=== PATIENT | male | born 1995 | race Caucasian/White ===

== ENCOUNTER 2017-09-21 12:04 | Inpatient (IN) | payer MEDICAID, SELFPAY ==
[2017-09-21 12:19] VITALS: RESP 18; BMI 21.2
--- NOTE | 2017-09-21 12:22 | HP.PCM_ITS ---
Problem List (1) Acute opioid withdrawal Status: Acute (2) Heroin dependence Status: Chronic (3) Anxiety disorder Status: Chronic Qualifiers: Anxiety disorder type: unspecified anxiety disorder Qualified Code(s): F41.9 - Anxiety disorder, unspecified (4) Tobacco dependence Status: Chronic History of Present Illness Date of Admission: 09/21/17 Chief Complaint: Abdominal pain The patient is a 22 year old M with past medical history significant for tobacco dependence, heroine dependence as well as anxiety presents with abdominal pain. Patient also reports nausea as well as post with he also did experience restless legs. Patient reports daily use of IV heroin he is not. Patient denies any previous detox. In view of worsening symptoms patient did call the [facility] service and was admitted as a case of acute opiate withdrawal for medical stabilization Past Medical History Past Medical History (Chronic Problems): Chronic Problems Heroin dependence (Chronic) Anxiety disorder (Chronic) Tobacco dependence (Chronic) Surgical History: no surgical history Smoking Status: Current every day smoker Tobacco Use: Cigarettes - *Family History Maternal History Items: No pertinent history Paternal History Items: No pertinent history Review of Systems Constitutional: Reports: Night Sweats HEENT: Denies: Head Aches, Sinus Congestion, Sinus Drainage Cardiovascular: Denies: Chest Pain, Orthopnea, Palpitations, Paroxysmal Noc. Dyspnea Respiratory: Denies: Cough, Shortness of breath at rest, Shortness of breath upon exertion, Sputum production Gastrointestinal: Reports: Abdominal Pain, Nausea Genitourinary: Denies: Dysuria, Frequency, Hematuria, Urgency Musculoskeletal: Denies: Joint Pain, Joint Tenderness Skin: Denies: Rash Neurological: Denies: Focal weakness, Numbness, Tingling Psychiatric: Reports: Anxiety VTE Information - Inpt Only VTE Present on Admission: No VTE Mechan Device Prophylaxis: Knee High GOLDY Hose VTE Pharm Prophylaxis ordered?: Yes Patient Problems: Active and Suspected Problems Acute opioid withdrawal (Acute) Objective: GENERAL: Appears anxious HEENT: Clear conjunctiva, moist oral mucosa NECK; supple, normal thyroid, no distended JVD. CHEST: Clear to auscultation bilaterally, HEART: Regular S1 S2, no audible murmurs ABDOMEN: soft, non-tender, normoactive bowel sounds, RECTAL: deferred EXTREMITIES: No edema, no clubbing, no cyanosis. 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 SKIN: No Rash Assessment/Plan All Active Problems Acute opioid withdrawal (Acute) Patient is a 22-year-old gentleman presenting with acute opiate withdrawal 1. Acute opioid withdrawal patient has been admitted to the regular nursing floor for medical stabilization using Subutex 2. Heroine dependence patient was counseled on cessation as stated above he presented with acute opiate withdrawal and management is as discussed above 3. Anxiety disorder: Patient has been placed on Librium as needed 4. Tobacco dependence counseled on cessation, offered nicotine patch for tobacco cravings 5. DVT prophylaxis low risk did encourage early ambulation Code Visit Inpatient E&M: 04596 Init Hosp L3
[2017-09-21 12:54] LABS: Absolute Lymphocyte Count 2.09 X10^3/ul (0.83-4.51); Absolute Neutrophil Count 7.6 X10^3/uL (2.0-7.7); Basophil# 0.05 X10^3/uL; Basophil% 0.5 % (0-1); Eosinophil# 0.09 X10^3/uL; Eosinophils% 0.9 % (0-5); Hematocrit 52.3 % (40-54); Hemoglobin 17.8 g/dl (13.0-16.5); Lymphocyte # 2.09 X10^3/ul (4.0); Lymphocyte % 20.1 % (19-41); Mean Corpuscular Hgb 30.5 pg (27.0-32.0); Mean Corpuscular Volume 89.6 fL (80-94); Monocyte# 0.53 X10^3/uL; Monocyte% 5.1 % (0-10); Neutrophil # 7.61 X10^3/uL (2.7-7.7); Neutrophil % 73.3 % (47-70); Platelet Count 289 K/mm3 (150-450); RBC Distribution Width CV 13.6 % (11.6-14.6); RBC Distribution Width SD 44.7 fl (35.1-43.9); Red Blood Count 5.84 M/mm3 (4.6-6.2); White Blood Count 10.4 K/mm3 (4.4-11.0)
[2017-09-21 12:57] LABS: International Normalized Ratio 0.9; Prothrombin Time (Protime)PT. 12.4 SECONDS (11.7-14.9)
[2017-09-21 12:59] VITALS: BP 136/90; PULSE 70; RESP 16; TEMP 36.9; O2SAT 98
[2017-09-21 13:02] LABS: Bacteria 0 SEEN /hpf (None Seen); Mucous, Urine 0 SEEN /hpf (<or=2+); POSITIVE COUNT NO; POSITIVE DIFFERENTIAL NO; POSITIVE MORPHOLOGY NO; Red Blood Cells-Urine 0 SEEN /hpf (0-5); Squamous Epithelial Cells - UA 0 SEEN /hpf (0-5); White Blood Cells 0 SEEN /hpf (0-5)
[2017-09-21 13:04] LABS: AST(SGOT) 17 U/L (15-37); Alanine Aminotransfer ALT/SGPT 25 U/L (16-61); Albumin, Serum 4.7 g/dL (3.2-5.0); Alkaline Phosphatase 103 U/L (45-117); Amylase 101 U/L (25-115); Anion Gap 5 (5-15); BUN 11 mg/dL (7-18); BUN/Creat Ratio 9.8 RATIO (10-20); Chloride 105 mmol/L (98-107); Creatinine, Serum 1.12 mg/dL (0.70-1.30); EST Glomerular Filtration Rate 85 mL/min (>60); Est Glom Filt Rate - Afr Amer 103 mL/min (>60); Estimated Creatinine Clearance 102.42 ml/min; Globulin 4.6 g/dL (2.2-4.2); Glucose 87 mg/dL (74-106); Lipase 181 U/L (73-393); Protein, Total 9.3 g/dL (6.4-8.2); Sodium Level 136 mmol/L (136-145)
[2017-09-21 13:07] LABS: Color, Urine Yellow (Yellow); Glucose, Dipstick Normal (Normal); Ketone-Dipstick Negative (Negative); Leukocyte Esterase-Dipstick Negative /ul (Negative); Nitrite-Dipstick Negative (Negative); Occult Blood-Urine Negative /ul (Negative); Protein-Dipstick Negative (Negative); Specific Gravity, Urine 1.015 (1.002-1.030); Urine Bilirubin Dipstick Negative (Negative); Urine Clarity Clear (Clear); Urine Urobilinogen Normal (Normal)
[2017-09-21 13:20] LABS: Amphetamine Urine VISTA NEGATIVE (<1000 ng/mL); Barbiturate Urine VISTA NEGATIVE (< 200 ng/mL); Benzodiazepine Urine VISTA NEGATIVE (< 200 ng/mL); Cocaine Urine VISTA NEGATIVE (< 300 ng/mL); Ecstacy Urine VISTA NEGATIVE (< 500 ng/mL); Methadone Urine VISTA NEGATIVE (< 300 ng/mL); PCP Urine VISTA NEGATIVE (< 25 ng/mL); THC Urine VISTA POSITIVE (< 50 ng/mL); Vista UDS pH Range 5
[2017-09-21] MEDS: Buprenorphine HCl 2 MG TAB.SUBL SL ×2 (13:31→20:14)
[2017-09-21] MEDS: chlordiazePOXIDE 25 MG Capsule PO ×3 (13:31→20:14)
[2017-09-21 14:00] VITALS: BP 140/94; PULSE 65; RESP 18; TEMP 36.7
[2017-09-21] MEDS: cloNIDine HCl 0.1 MG Tablet PO (14:20)
[2017-09-21] MEDS: Pramipexole Di-HCl 0.25 MG Tablet PO (14:20)
[2017-09-21] MEDS: Methocarbamol 750 MG Tablet PO (14:20)
[2017-09-21] MEDS: Ibuprofen 600 MG Tablet PO (17:33)
[2017-09-21] MEDS: hydrOXYzine PAM 25 MG Capsule 50 MG PO (17:34)
[2017-09-21 17:46] VITALS: BP 122/83; PULSE 53; RESP 18; TEMP 37.2
[2017-09-21 20:12] VITALS: BP 135/64; PULSE 76; RESP 16; TEMP 36.7
[2017-09-21] MEDS: traZODone 50 MG Tablet PO (20:15)
[2017-09-22] MEDS: chlordiazePOXIDE 25 MG Capsule PO ×3 (00:44→09:59)
[2017-09-22] MEDS: hydrOXYzine PAM 25 MG Capsule 50 MG PO ×2 (00:44→12:38)
[2017-09-22] MEDS: cloNIDine HCl 0.1 MG Tablet PO ×2 (00:44→09:16)
[2017-09-22] MEDS: Ibuprofen 600 MG Tablet PO ×2 (00:46→12:38)
[2017-09-22 02:00] VITALS: BP 107/69; PULSE 64; RESP 18; TEMP 36.8
[2017-09-22] MEDS: Buprenorphine HCl 2 MG TAB.SUBL SL ×3 (05:27→20:25)
[2017-09-22 06:00] VITALS: BP 108/45; PULSE 61; RESP 16; TEMP 37
--- NOTE | 2017-09-22 07:48 | PN_ITS ---
Patient Problems: Active and Suspected Problems Acute opioid withdrawal (Acute) Subjective: Patient is a 22-year-old gentleman presenting with acute opiate withdrawal. Patient was admitted to regular nursing floor for medical stabilization using Subutex 09/23/2017: Patient seen complains of restless legs as well as twitching involving the lower extremities Objective: GENERAL: Appears anxious HEENT: Clear conjunctiva, moist oral mucosa NECK; supple, normal thyroid, no distended JVD. CHEST: Clear to auscultation bilaterally, HEART: Regular S1 S2, no audible murmurs ABDOMEN: soft, non-tender, normoactive bowel sounds, RECTAL: deferred EXTREMITIES: No edema, no clubbing, no cyanosis. 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 SKIN: No Rash Vitals/I&O's: Vital Signs Temp Pulse Resp BP Pulse Ox 98.6 F 61 16 108/45 L 98 09/22/17 06:00 09/22/17 06:00 09/22/17 06:00 09/22/17 06:00 09/21/17 12:59 Oxygen Delivery Method Room Air Weight: 71.2 kg Body Mass Index (BMI) 21.2 Intake and Output for Last 24 Hours 09/20/17 09/21/17 09/22/17 23:59 23:59 23:59 Intake Total 1200 / 1200 1000 / 1000 Balance 1200 / 1200 1000 / 1000 Laboratory Results 09/21/17 12:40: WBC 10.4, RBC 5.84, Hgb 17.8 H, Hct 52.3, MCV 89.6, MCH 30.5, MCHC 34.0, RDW 13.6, RDW Differential 44.7 H, Plt Count 289, MPV 10.0, Immature Gran % (Auto) 0.100, Neut % (Auto) 73.3 H, Lymph % (Auto) 20.1, [place] % (Auto) 5.1, Eos % (Auto) 0.9, Baso % (Auto) 0.5, Absolute Neuts (auto) 7.6, Absolute Lymphs (auto) 2.09, Total Counted Not Reportable 09/21/17 12:40: PT 12.4, INR 0.9 09/21/17 12:40: Sodium 136, Potassium 4.0, Chloride 105, Carbon Dioxide 26.0, Anion Gap 5, BUN 11, Creatinine 1.12, Estim Creat Clear Calc 102.42, Est GFR ( MDRD) Af Amer 103, Est GFR (MDRD) Non-Af 85, BUN/Creatinine Ratio 9.8 L, Glucose 87, Calcium 10.0, Total Bilirubin 0.40, AST 17, ALT 25, Alkaline Phosphatase 103, Total Protein 9.3 H, Albumin 4.7, Globulin 4.6 H, Albumin/ Globulin Ratio 1.0, Amylase 101, Lipase 181 09/21/17 12:40: Ethyl Alcohol 5.0 09/21/17 12:40: Urine Opiates Screen NEGATIVE, Urine Methadone Screen NEGATIVE, Ur Barbiturates Screen NEGATIVE, Ur Phencyclidine Scrn NEGATIVE, Ur Amphetamines Screen NEGATIVE, U Methamphetamin-MDMA NEGATIVE, U Benzodiazepines Scrn NEGATIVE, Urine Cocaine Screen NEGATIVE, U Cannabinoids Screen POSITIVE H, Ur Drug Screen Comment 09/21/17 12:40: Urine Color Yellow, Urine Clarity Clear, Urine pH 5.0, Ur Specific [place] 1.015, Urine Protein Negative, Urine Glucose (UA) Normal, Urine Ketones Negative, Urine Occult Blood Negative, Urine Nitrite Negative, Urine Bilirubin Negative, Urine Urobilinogen Normal, Ur Leukocyte Esterase Negative, Urine RBC 0 SEEN, Urine WBC 0 SEEN, Ur Squamous Epith Cells 0 SEEN, Urine Bacteria 0 SEEN, Urine Mucus 0 SEEN Current Medications Acetaminophen (Tylenol) 500 mg PO Q4H PRN PRN PRN Reason: Temp > 100.4 F Al Hydroxide/Mg Hydroxide (Mylanta Ii) 30 ml PO Q6H PRN PRN PRN Reason: dyspesia Bisacodyl (Dulcolax) 10 mg RECTAL DAILY PRN PRN Reason: Constipation Buprenorphine HCl (Buprenorphine Hcl) 4 mg SL Q8H AKSHAT PRN Reason: Taper Stop: 09/24/17 16:44 Last Admin: 09/22/17 05:27 Dose: 4 mg Chlordiazepoxide (Librium) 25 mg PO Q4H AKSHAT Stop: 09/22/17 08:31 Last Admin: 09/22/17 05:27 Dose: 25 mg Chlordiazepoxide (Librium) 25 mg PO Q6H PRN PRN PRN Reason: Moderate-Severe Anxiety Clonidine (Catapres) 0.1 mg PO Q2H PRN PRN PRN Reason: Hot/Cold Sweats or Anxiety Last Admin: 09/22/17 00:44 Dose: 0.1 mg Dicyclomine HCl (Bentyl) 20 mg PO Q6H PRN PRN PRN Reason: Abdomnial Discomfort Hydroxyzine HCl (Vistaril Vial) 50 mg IM Q6H PRN PRN PRN Reason: Breakthrough Anxiety Hydroxyzine Pamoate (Vistaril Pamoate Capsule) 50 mg PO Q6H PRN PRN PRN Reason: Mild Anxiety Last Admin: 09/22/17 00:44 Dose: 50 mg Ibuprofen (Motrin) 600 mg PO Q8H PRN PRN PRN Reason: Mild-Moderate Pain (1-5/10) Last Admin: 09/22/17 00:46 Dose: 600 mg Loperamide HCl (Imodium) 2 - 4 mg PO UD PRN PRN Reason: LOOSE STOOLS Methocarbamol (Methocarbamol) 750 mg PO Q6H PRN PRN PRN Reason: Muscle Aches Last Admin: 09/21/17 14:20 Dose: 750 mg Nicotine (Nicoderm Cq (Pbkc)) 21 mg TRANSDERM. DAILY AKSHAT Last Admin: 09/21/17 13:31 Dose: 21 mg Ondansetron HCl (Zofran Odt) 4 mg PO Q6H PRN PRN PRN Reason: NAUSEA Pramipexole Dihydrochloride (Mirapex) 0.25 mg PO Q12H PRN PRN PRN Reason: Restless Legs Last Admin: 09/21/17 14:20 Dose: 0.25 mg Senna (Senokot) 1 tablet PO QHS PRN PRN Reason: Constipation Trazodone HCl (Desyrel) 50 mg PO QHS AKSHAT Last Admin: 09/21/17 20:15 Dose: 50 mg Medical Necessity - Tobacco Use Smoking Status: Current every day smoker Tobacco Use: Cigarettes Assessment/Plan All Active Problems Acute opioid withdrawal (Acute) Patient is a 22-year-old gentleman presenting with acute opiate withdrawal 1. Acute opioid withdrawal patient has been admitted to the regular nursing floor for medical stabilization using Subutex 2. Heroine dependence patient was counseled on cessation as stated above he presented with acute opiate withdrawal and management is as discussed above 3. Anxiety disorder: Patient has been placed on Librium as needed 4. Tobacco dependence counseled on cessation, offered nicotine patch for tobacco cravings 5. DVT prophylaxis low risk did encourage early ambulation Code Visit Inpatient E&M: 07799 Subs Hosp L3
[2017-09-22 09:04] VITALS: BP 126/87; PULSE 85; RESP 16; TEMP 35.9
[2017-09-22] MEDS: Dicyclomine 10 MG Capsule 20 MG PO (09:15)
[2017-09-22] MEDS: Methocarbamol 750 MG Tablet PO ×2 (09:59→20:26)
[2017-09-22] MEDS: Mag Hydrox/Al Hydrox/Simeth 30 ML UDC PO ×2 (11:31→20:25)
[2017-09-22 12:39] VITALS: BP 133/71; PULSE 88; RESP 16; TEMP 36.8
--- NOTE | 2017-09-22 16:56 | CHAPLAIN ---
Type of Pastoral Visit _x__ Initial Visit ___ Follow-up Visit ___ On-call Visit ___ General Patient Visit ___ Spiritual Assessment ___ Family Conference ___ Bereavement ___ Rapid Response ___ Code Blue ___ Other (describe below) Pastoral Care Referral From _x__ Patient ___ Family ___ Nurse ___ Physician ___ Manager Recovery ___ Pants Presser ___ Other (describe below) Sacrament/Intervention _x__ Active listening ___ Anointing ___ Zoroastrianism ___ Bereavement ___ Communion _x__ Donna exploration ___ ___ Life review _x__ Prayer ___ Reconciliation ___ Sacrament of Sick _x__ Supportive presence ___ Wedding ___ Other (describe below) Pastoral Comments met patient in the hallway as he was walking and he invited me to talk more; sat with pt to hear his story; pt has a plan for his recovery and believes he can do better this time; pt has a donna in God although not actively engaged in a spiritual support network at this time; pt family has shown support and have a spiritual framework
[2017-09-22] MEDS: traZODone 50 MG Tablet PO (20:26)
[2017-09-22 20:57] VITALS: BP 131/77; PULSE 81; RESP 18; TEMP 36.7
[2017-09-23] MEDS: Methocarbamol 750 MG Tablet PO ×3 (04:37→21:09)
[2017-09-23] MEDS: chlordiazePOXIDE 25 MG Capsule PO ×2 (04:37→21:09)
[2017-09-23] MEDS: Buprenorphine HCl 2 MG TAB.SUBL SL ×2 (04:38→16:34)
[2017-09-23 04:46] VITALS: BP 124/89; PULSE 82; RESP 16; TEMP 36.4
[2017-09-23 09:06] VITALS: BP 129/79; PULSE 75; RESP 16; TEMP 36.7
[2017-09-23] MEDS: Pramipexole Di-HCl 0.25 MG Tablet PO (09:52)
--- NOTE | 2017-09-23 10:56 | PCM.PN.HOSP ---
Patient Problems: Active and Suspected Problems Acute opioid withdrawal (Acute) Subjective: Patient would like some Tylenol for muscle aching Objective: He is tired appearing, but in no acute distress Vitals/I&O's: Vital Signs Temp Pulse Resp BP Pulse Ox 98.1 F 75 16 129/79 H 98 09/23/17 09:06 09/23/17 09:06 09/23/17 09:06 09/23/17 09:06 09/21/17 12:59 Oxygen Delivery Method Room Air Weight: 156 lb 15.506 oz Body Mass Index (BMI) 21.2 Intake and Output for Last 24 Hours 09/21/17 09/22/17 09/23/17 23:59 23:59 23:59 Intake Total 1200 / 1200 1000 / 1000 Balance 1200 / 1200 1000 / 1000 General: Alert, Oriented x3, Cooperative, No apparent distress Neck: No JVD Psych/Mental Status: Normal Affect, Appropriate Current Medications Acetaminophen (Tylenol) 500 mg PO Q4H PRN PRN PRN Reason: Temp > 100.4 F Al Hydroxide/Mg Hydroxide (Mylanta Ii) 30 ml PO Q6H PRN PRN PRN Reason: dyspesia Last Admin: 09/22/17 20:25 Dose: 30 ml Bisacodyl (Dulcolax) 10 mg RECTAL DAILY PRN PRN Reason: Constipation Buprenorphine HCl (Buprenorphine Hcl) 2 mg SL Q12H AKSHAT PRN Reason: Taper Stop: 09/24/17 16:44 Last Admin: 09/23/17 04:38 Dose: 2 mg Chlordiazepoxide (Librium) 25 mg PO Q6H PRN PRN PRN Reason: Moderate-Severe Anxiety Last Admin: 09/23/17 04:37 Dose: 25 mg Clonidine (Catapres) 0.1 mg PO Q2H PRN PRN PRN Reason: Hot/Cold Sweats or Anxiety Last Admin: 09/22/17 09:16 Dose: 0.1 mg Dicyclomine HCl (Bentyl) 20 mg PO Q6H PRN PRN PRN Reason: Abdomnial Discomfort Last Admin: 09/22/17 09:15 Dose: 20 mg Hydroxyzine HCl (Vistaril Vial) 50 mg IM Q6H PRN PRN PRN Reason: Breakthrough Anxiety Hydroxyzine Pamoate (Vistaril Pamoate Capsule) 50 mg PO Q6H PRN PRN PRN Reason: Mild Anxiety Last Admin: 09/22/17 12:38 Dose: 50 mg Ibuprofen (Motrin) 600 mg PO Q8H PRN PRN PRN Reason: Mild-Moderate Pain (1-5/10) Last Admin: 09/22/17 12:38 Dose: 600 mg Loperamide HCl (Imodium) 2 - 4 mg PO UD PRN PRN Reason: LOOSE STOOLS Methocarbamol (Methocarbamol) 750 mg PO Q6H PRN PRN PRN Reason: Muscle Aches Last Admin: 09/23/17 04:37 Dose: 750 mg Nicotine (Nicoderm Cq (Pbkc)) 21 mg TRANSDERM. DAILY AKSHAT Last Admin: 09/23/17 09:27 Dose: 21 mg Ondansetron HCl (Zofran Odt) 4 mg PO Q6H PRN PRN PRN Reason: NAUSEA Pramipexole Dihydrochloride (Mirapex) 0.25 mg PO Q12H PRN PRN PRN Reason: Restless Legs Last Admin: 09/23/17 09:52 Dose: 0.25 mg Senna (Senokot) 1 tablet PO QHS PRN PRN Reason: Constipation Trazodone HCl (Desyrel) 50 mg PO QHS AKSHAT Last Admin: 09/22/17 20:26 Dose: 50 mg Medical Necessity - Tobacco Use Smoking Status: Current every day smoker Tobacco Use: Cigarettes Assessment/Plan All Active Problems Acute opioid withdrawal (Acute) 22-year-old male with past medical history significant for tobacco dependence, anxiety disorder, presented with abdominal pain and nausea, restless legs. Patient with history of heroin dependence, daily use IV. Patient presented 09/21/2017 for [facility] medical stabilization therapy for acute opioid withdrawal. Hospital course is uncomplicated. Tox screen positive for THC Acetaminophen added for muscle aching 1. Acute opiate withdrawal Continue [facility] medical stabilization protocol, Subutex d# 2 taper which concludes 09/24/17 PM 2. Heroin dependence Cessation recommended, counseled 3. Anxiety disorder Protocol includes Librium as needed 4. Tobacco dependence Counseled on cessation Nicotine patch as needed 5. DVT prophylaxis Low risk patient, early ambulation Code Visit Inpatient E&M: 23314 [facility] Hosp L1
[2017-09-23 14:52] VITALS: BP 132/85; PULSE 74; RESP 16; TEMP 36.9
[2017-09-23] MEDS: Mag Hydrox/Al Hydrox/Simeth 30 ML UDC PO ×2 (15:02→21:09)
[2017-09-23] MEDS: cloNIDine HCl 0.1 MG Tablet PO ×2 (15:02→21:09)
[2017-09-23 20:58] VITALS: BP 131/86; PULSE 79; RESP 16; TEMP 37.2
[2017-09-23] MEDS: traZODone 50 MG Tablet PO (21:13)
[2017-09-24] MEDS: Buprenorphine HCl 2 MG TAB.SUBL SL (04:43)
[2017-09-24 06:05] VITALS: BP 122/78; PULSE 80; RESP 16; TEMP 37.1
[2017-09-24 09:55] VITALS: BP 150/80; PULSE 55; RESP 20; TEMP 37.1
--- NOTE | 2017-09-24 10:18 | DCINST_ITS ---
- Discharge Diagnoses Current Active Problems: Current Active and Chronic Problems Acute opioid withdrawal (Acute) Heroin dependence (Chronic) Anxiety disorder (Chronic) Tobacco dependence (Chronic) Reason(s) for Visit for Discharge Instructions: [facility] program You will use the following diet at home:: No restrictions, Regular Your food should be the consistency of: Regular Your liquids should be the consistency of: Regular/Thin Discharge Activity: Return to Normal Activity Additional Instructions: Aftercare services as you have arranged Allergies/Adverse Reactions: Allergies No Known Allergies Allergy (Verified 09/21/17 12:24) Primary Care Physician: Care Physician,No Primary [Primary Care Provider] - Test Results: Test results from this visit will be discussed in further detail at your follow- up appointment, if applicable.
--- NOTE | 2017-09-24 11:21 | PCM.PN.HOSP ---
Patient Problems: Active and Suspected Problems Acute opioid withdrawal (Acute) Subjective: The patient reports he is feeling improved today. Tylenol helped his leg cramps Objective: NAD, resting comfortably in bed Vitals/I&O's: Vital Signs Temp Pulse Resp BP Pulse Ox 98.8 F 55 L 20 H 150/80 H 98 09/24/17 09:55 09/24/17 09:55 09/24/17 09:55 09/24/17 09:55 09/21/17 12:59 Oxygen Delivery Method Room Air Weight: 156 lb 15.506 oz Body Mass Index (BMI) 21.2 Intake and Output for Last 24 Hours 09/22/17 09/23/17 09/24/17 23:59 23:59 23:59 Intake Total 1000 / 1000 360 / 360 Balance 1000 / 1000 360 / 360 General: Alert, Oriented x3 HEENT: Atraumatic, PERRLA, EOMI Oral: Moist Mucosa Neck: No JVD Lungs: Clear to auscultation Cardiovascular: Regular rate, Regular Rhythm, Normal S1, Normal S2, No murmurs Abdomen: Bowel Sounds Present, Soft, Non Tender, No Hepato-splenomegaly Extremities: No edema Current Medications Acetaminophen (Tylenol) 500 mg PO Q4H PRN PRN PRN Reason: MUSCLE SPASM Al Hydroxide/Mg Hydroxide (Mylanta Ii) 30 ml PO Q6H PRN PRN PRN Reason: dyspesia Last Admin: 09/23/17 21:09 Dose: 30 ml Bisacodyl (Dulcolax) 10 mg RECTAL DAILY PRN PRN Reason: Constipation Buprenorphine HCl (Buprenorphine Hcl) 2 mg SL Q12H AKSHAT PRN Reason: Taper Stop: 09/24/17 16:44 Last Admin: 09/24/17 04:43 Dose: 2 mg Chlordiazepoxide (Librium) 25 mg PO Q6H PRN PRN PRN Reason: Moderate-Severe Anxiety Last Admin: 09/23/17 21:09 Dose: 25 mg Clonidine (Catapres) 0.1 mg PO Q2H PRN PRN PRN Reason: Hot/Cold Sweats or Anxiety Last Admin: 09/23/17 21:09 Dose: 0.1 mg Dicyclomine HCl (Bentyl) 20 mg PO Q6H PRN PRN PRN Reason: Abdomnial Discomfort Last Admin: 09/22/17 09:15 Dose: 20 mg Hydroxyzine HCl (Vistaril Vial) 50 mg IM Q6H PRN PRN PRN Reason: Breakthrough Anxiety Hydroxyzine Pamoate (Vistaril Pamoate Capsule) 50 mg PO Q6H PRN PRN PRN Reason: Mild Anxiety Last Admin: 09/22/17 12:38 Dose: 50 mg Ibuprofen (Motrin) 600 mg PO Q8H PRN PRN PRN Reason: Mild-Moderate Pain (1-5/10) Last Admin: 09/22/17 12:38 Dose: 600 mg Loperamide HCl (Imodium) 2 - 4 mg PO UD PRN PRN Reason: LOOSE STOOLS Methocarbamol (Methocarbamol) 750 mg PO Q6H PRN PRN PRN Reason: Muscle Aches Last Admin: 09/23/17 21:09 Dose: 750 mg Nicotine (Nicoderm Cq (Pbkc)) 21 mg TRANSDERM. DAILY AKSHAT Last Admin: 09/24/17 10:01 Dose: 21 mg Ondansetron HCl (Zofran Odt) 4 mg PO Q6H PRN PRN PRN Reason: NAUSEA Pramipexole Dihydrochloride (Mirapex) 0.25 mg PO Q12H PRN PRN PRN Reason: Restless Legs Last Admin: 09/23/17 09:52 Dose: 0.25 mg Senna (Senokot) 1 tablet PO QHS PRN PRN Reason: Constipation Trazodone HCl (Desyrel) 50 mg PO QHS AKSHAT Last Admin: 09/23/17 21:13 Dose: 50 mg Medical Necessity - Tobacco Use Smoking Status: Current every day smoker Tobacco Use: Cigarettes Assessment/Plan All Active Problems Acute opioid withdrawal (Acute) 22-year-old male with past medical history significant for tobacco dependence, anxiety disorder, presented with abdominal pain and nausea, restless legs. Patient with history of heroin dependence, daily use IV. Patient presented 09/21/2017 for [facility] medical stabilization therapy for acute opioid withdrawal. Hospital course was uncomplicated. Tox screen positive for THC Acetaminophen added for muscle aching Patient is medically stable for discharge to home at the conclusion of his taper today. Discussed primary care issues with patient; he has not seen physician in some time. He will establish with PCP of his choosing. Discussed issues of elective hep C and HIV testing; he will consider. 1. Acute opiate withdrawal Continue [facility] medical stabilization protocol, Subutex d# 3 taper which concludes 09/24/17 PM 2. Heroin dependence Cessation recommended, counseled 3. Anxiety disorder Protocol includes Librium as needed 4. Tobacco dependence Counseled on cessation Nicotine patch as needed 5. DVT prophylaxis Low risk patient, early ambulation
--- NOTE | 2017-09-24 11:24 | PCM.DC.SUM ---
Discharge Date and Diagnosis - Problem List Patient Problems: Active and Suspected Problems Acute opioid withdrawal (Acute) Date of Admission: 09/21/17 Date of Discharge: 09/24/17 - Primary Discharge Diagnosis Active and Suspected Problems Acute opioid withdrawal (Acute) - Secondary Discharge Diagnosis Chronic Problems Heroin dependence (Chronic) Anxiety disorder (Chronic) Tobacco dependence (Chronic) Hospital Course and Treatment Operations: None Procedures: None Summary of Care Provided: The patient is a 22 year old M with past medical history significant for tobacco dependence, anxiety disorder, who presented with abdominal pain and nausea, restless legs. He was noted to have history of heroin dependence with daily IV use. He presented 09/21/2017 for the [facility] medical stabilization therapy for acute opiate withdrawal. His hospital course was uncomplicated. Urine tox screen was positive for THC. The patient completed the [facility] 3 day medical stabilization therapy for acute opioid withdrawal, Suboxone tapering dose. He was discharged in stable condition 09/24/2017. He will continue with his pre-arranged aftercare services tomorrow. He was encouraged to establish with primary care physician. Discharge Activity: Return to Normal Activity Primary Care Physician: Care Physician,No Primary [Primary Care Provider] - Medical Necessity - Tobacco Use Smoking Status: Current every day smoker Tobacco Use: Cigarettes Meaningful Use Info Meaningful Use Diagnoses (Choose all that apply): None applicable Code Visit Inpatient E&M: 51736 Disch Hosp
[2017-09-24 14:00] VITALS: BP 143/75; PULSE 90; RESP 20; TEMP 36.6
[2017-09-24 16:00] VITALS: BP 142/80; PULSE 85; RESP 20; TEMP 37.1; O2SAT 98
== END 2017-09-24 16:36 | disposition home or self-care (01) | DRG 435 ==
LOC: MS2 12:07 → MS3 17:03
PROVIDERS: Admitting Provider Internal Medicine; Visit Provider Internal Medicine
DX: F11.23 Opioid dependence with withdrawal (principal); F17.210 Nicotine dependence, cigarettes, uncomplicated; F41.9 Anxiety disorder, unspecified
CPT/HCPCS: 80053; 80307; 80320; 81001; 82150; 83690; 85025; 85610; 99406; A4216; G0480